=== PATIENT | female | born 1960 | race Caucasian/White ===

== ENCOUNTER 2020-04-08 13:49 | Emergency (ER) | payer MEDICAID, OTHER ==
[~2020-04-08] VITALS: Ht 162.6 cm; Wt 70.9 kg
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
[2020-04-08] MEDS ORDERED: METF500T17 PO (14:29)
[2020-04-08] MEDS ORDERED: ATOR40TA78 PO (14:29)
--- NOTE | 2020-04-08 14:55 | NUR ---
PATIENT TO IMAGING.
--- NOTE | 2020-04-08 15:41 | NUR ---
PATIENT BACK FROM IMAGING, AMBULATED TO BATHROOM WITH STEADY GAIT.
[2020-04-08] MEDS ORDERED: ACETAMINOPHEN 325 MG TABLET PO ONE (16:00)
[2020-04-08] MEDS ORDERED: ACETAMINOPHEN 325 MG TABLET ONE (16:07)
--- NOTE | 2020-04-08 16:48 | NUR ---
ERMD AT BEDSIDE TO DISCUSS POC.
[2020-04-08 17:06] VITALS: BP 116/75
--- NOTE | 2020-04-08 17:22 | NUR ---
Patient given discharge instructions and they have confirmed that they understand the instructions. Ice pack provided for patient. Patient ambulatory with steady gait from ED.
== END 2020-04-08 17:22 | disposition home or self-care (01) ==
LOC: ED 14:48
DX: S70.02XA Contusion of left hip, initial encounter (principal); S00.12XA Contusion of left eyelid and periocular area, initial encounter; W17.89XA Other fall from one level to another, initial encounter; Y93.89 Activity, other specified; Y92.488 Other paved roadways as the place of occurrence of the external cause; Y99.8 Other external cause status
CPT/HCPCS: 70450; 99284